=== PATIENT | female | born 1960 | race Caucasian/White ===

== ENCOUNTER 2024-01-04 14:23 | Outpatient (AMB) | payer MEDICARE, SELFPAY ==
--- NOTE | 2024-01-04 14:35 | MHC.OFFVIS ---
Vital Signs 01/04/24 14:47 Height 4 ft 11 in Weight 203 lb 7.787 oz BMI 41.1 BP 124/60 Blood Pressure Location Rt brachial Position Sitting Pulse 86 Pulse Source Pulse Oximeter Pulse Oximetry (%) 95 Oxygen Delivery Method Room Air Intake Visit Reasons: Myalgia/CM Intake Note: Patient presents for Myalgia. Body aches all over Allergies No Known Allergies Allergy (Verified 01/04/24 14:40) Medication List - Last Reconciled 01/04/24 by Lisseth Lagunas MD cetirizine (All Day Allergy (cetirizine)) 10 mg PO DAILY PRN cholecalciferol (vitamin D3) 50 mcg PO DAILY hydroxyzine pamoate 25 mg PO BID PRN insulin aspart U-100 (Novolog FlexPen U-100 Insulin aspart) subcut lactulose (Constulose) 30 mL PO TID lisinopril 10 mg PO DAILY magnesium oxide 500 mg PO DAILY rifaximin (Xifaxan) 550 mg PO BID venlafaxine ER mg PO HPI Comments Details: This is a 63-year-old female who presents for evaluation of diffuse pain. Patient states that for the last 3-4 months she has been having diffuse body aches, generally worse at night, associated with night sweats, she never took her temperature, yes pain in her neck, shoulders, thighs, hips, lower back. She stated that she fell about a year ago and she does not believe she broke anything. After well she started having left shoulder pain. She was found to have multiple rotator cuff tears. She is s/p right tennis elbow repair in the past. She states that her hands intermittently swell up. Has any history suggestive of Raynaud's. Denies any history of DVT/PE. Denies weight loss. She is unaware of any family history of an autoimmune rheumatic disease. Denies psoriasis. She stated that she was diagnosed with SERGIO in the past and could not tolerate her CPAP machine. [facility] Medical History Tubular adenoma of colon Obesity SERGIO (obstructive sleep apnea) Depression with anxiety Vitamin D deficiency Anemia Open-angle glaucoma Mild cognitive impairment Splenomegaly Thrombocytopenia Liver cirrhosis Esophageal varices Hypertension History of tennis elbow Surgical History History of appendectomy History of tonsillectomy Social History Household Members: Spouse Housing: House Alcohol intake: former Patient Tobacco Use Status: Former Tobacco user Years Smoked: 9 Current occupational status: previously employed Current occupation: protective services officer Female Reproductive History Menstrual Total pregnancies: 1 Full term: 1 Review of Systems Const Reports fatigue, Reports lethargy, Reports weakness and Reports weight gain Eyes Reports eye pain ENT Reports dry mouth Musc Reports myalgias, Reports arthralgias, Reports muscle weakness and Reports numbness Skin/Breast Reports alopecia, Reports photosensitivity and Reports unusual bruising Neuro Reports numbness and Reports weakness Psych Reports abnormal sleep pattern and Reports anxiety Endo Reports fatigue Physical Exam Vital Signs: Last Vital Signs Pulse 86 01/04/24 14:47 BP 124/60 01/04/24 14:47 Pulse Ox 95 01/04/24 14:47 Oxygen Delivery Method Room Air 01/04/24 14:47 BMI result Body Mass Index 41.1 Const General: cooperative, healthy appearing and comfortable Nutritional Appearance: obese morbidly obese Orientation/consciousness: patient oriented x3 Limitations: no limitations HEENT Head: Yes normocephalic and Yes atraumatic Mouth: moist mucous membranes Resp Effort & Inspection: normal respiratory effort and able to speak in complete sentences Auscultation: clear to auscultation bilaterally Cardio Rate: regular rate Rhythm: regular rhythm Skin Other: Numerous spider angiomas Neuro General: patient oriented x3 Extrem Other: No active synovitis Bilateral finger clubbing Normal nailfold capillaroscopy Normal range of motion of hands, wrists, elbows and shoulders without pain Few tender muscles in the shoulders Proximal muscle strength 5/5 all 4 extremities Results Reviewed Results Reviewed: Labs 09/2023 RF negative ESR normal Uric acid normal JOSE ANTONIO 1-160 nucleolar Lyme screen negative Assessment & Plan Assessment & Plan (1) Polyarthralgia: Code(s): M25.50 - Pain in unspecified joint Category: Medical Plan: This is a 63-year-old female who presents for evaluation of diffuse pain. Also found to have a positive JOSE ANTONIO 1-160 nucleolar pattern. There is definitely an element of fibromyalgia as well as degenerative arthritis. I will order comprehensive serology to screen for underlying autoimmune rheumatic disease. Follow-up after blood work is completed Plan I spent 47 minutes reviewing patient's chart, evaluating patient, ordering diagnostic workup, counseling patient and documenting in the chart Orders: Orders Complete Blood Count Auto Diff Today M25.50 - Pain in unspecified joint C Reactive Protein Today M25.50 - Pain in unspecified joint Erythrocyte Sedimentation Rate Today M25.50 - Pain in unspecified joint Hepatitis A,B,C Profile Today Z11.59 - Encounter for screening for other viral diseases T Spot TB Today Z11.7 - Encounter for testing for latent tuberculosis infection Immunofixation Pnl, Serum Today M25.50 - Pain in unspecified joint Protein Electrophoresis, Serum Today M25.50 - Pain in unspecified joint Cyclic Citrullinated Peptide Today M25.50 - Pain in unspecified joint JOSE ANTONIO Reflex Titer and Pattern Today M32.9 - Systemic lupus erythematosus, unspecified Complement C3 Today M32.9 - Systemic lupus erythematosus, unspecified Protein Creatinine Ratio, Ur Today M32.9 - Systemic lupus erythematosus, unspecified Sjogren's Antibodies Today M32.9 - Systemic lupus erythematosus, unspecified UA w Microscopic Today M32.9 - Systemic lupus erythematosus, unspecified Creatine Kinase Total Today G72.9 - Myopathy, unspecified Lactate Dehydrogenase Today G72.9 - Myopathy, unspecified Gamma Glutamyl Transpeptidase Today G72.9 - Myopathy, unspecified Mitochondrial Antibody Today K74.60 - Unspecified cirrhosis of liver Smooth Muscle Antibody Today K74.60 - Unspecified cirrhosis of liver Comprehensive Met. Panel Today M25.50 - Pain in unspecified joint Anti Extractable Nuclear Ag Today M32.9 - Systemic lupus erythematosus, unspecified Anti DNA DS Antibody Today M32.9 - Systemic lupus erythematosus, unspecified Complement C4 Today M32.9 - Systemic lupus erythematosus, unspecified DNA Double Stranded-Crithidia Today M32.9 - Systemic lupus erythematosus, unspecified Aldolase Today G72.9 - Myopathy, unspecified Liver Kidney Microsomal Ab Today K74.60 - Unspecified cirrhosis of liver Scleroderma 12 Panel Today M34.9 - Systemic sclerosis, unspecified Coding Level of Care Code New Pt Level 4 (43261) Diagnoses Polyarthralgia M25.50
[2024-01-04 14:47] VITALS: BP 124/60; PULSE 86; O2SAT 95; BMI 41.1
== END 2024-01-04 15:47 | disposition home or self-care (01) ==
PROVIDERS: PCP Nurse Practitioner Primary Care; Visit Provider Student in an Organized Health Care Education/Training Program
DX: M25.50 Pain in unspecified joint (principal)
CPT/HCPCS: 99204

== ENCOUNTER 2024-01-04 14:23 | Outpatient (REF) | payer MEDICARE, SELFPAY ==
[2024-01-04 16:23] LABS: MANUAL DIFF FLAG NO
[2024-01-04 16:56] LABS: Appearance Urine Clear; Color Urine Dark Yellow; Glucose Urine UA Negative (Negative); Leukocyte Esterase Urine Small (1+) (Negative); Nitrite Urine Negative (Negative); Specific Gravity - Urine >= 1.030 (1.005-1.025); UMIC TRIGGER UA YES; Urine Blood Negative (Negative); Urine Ketones Trace mg/dL (Negative); Urine Protein 30 (1+) mg/dL (Neg-Trace)
[2024-01-04 16:57] LABS: Hematocrit 39.9 % (37.0-47.0); Hemoglobin 13.4 g/dl (12.0-16.0); Imm Gran Abs Auto 0.01 X10*3/uL (0.00-0.03); Imm Gran Pct Auto 0.3 % (0.0-0.4); Lymphocytes Absolute Auto 1.1 X10*3/uL (1.2-4.9); Lymphocytes Percent Auto 30.6 % (20-40); Mean Corpuscular HGB Conc 33.6 g/dl (31.0-35.0); Mean Corpuscular Hemoglobin 29.5 pg (27.0-33.0); Mean Corpuscular Volume 87.9 fL (80.0-98.0); Mean Platelet Volume 10.4 fL (9.4-12.3); Monocytes Absolute Auto 0.2 X10*3/uL (0.1-1.2); Monocytes Percent Auto 4.8 % (2-11); Neutrophils Absolute Auto 2.3 x10*3/uL (2.0-8.3); Neutrophils Percent Auto 64.3 % (45-73); Red Blood Count 4.54 X10*6/uL (4.20-5.50); Red Cell Distribution Width 13.7 % (11.0-16.0); White Blood Count 3.5 X10*3/uL (4.8-10.8)
[2024-01-04 17:00] LABS: Bacteria Urine 1+ (None Seen); Hyaline Casts Urine 0-2 /LPF (0-2); RBC Urine 0-2 /HPF (0-2)
[2024-01-04 17:04] LABS: Platelet Count 76 X10*3/uL (160-400)
[2024-01-04 17:51] LABS: Creatinine Urine 182.95 mg/dL; Protein/Creatinine Ratio, Ur 0.11 (<0.2); Total Protein Urine Random 20 mg/dL (<12)
[2024-01-04 17:51] LABS: Alanine Aminotransferase 15 U/L (0-31); Albumin Level 3.9 g/dL (3.5-5.0); Alkaline Phosphatase 105 U/L (39-117); Anion Gap 14 (12-20); Aspartate Amino Transferase 24 U/L (5-31); Bilirubin Total 0.6 mg/dL (0.0-1.0); Blood Urea Nitrogen 14 mg/dL (9-16); Calcium 9.3 mg/dL (8.4-10.2); Carbon Dioxide 22 mmol/L (22-29); Chloride 110 mmol/L (96-108); Estimated Glomerular Filt Rate > 60; Gamma Glutamyl Transpeptidase 38 U/L (7-33); Glucose Random 106 mg/dL (60-115); Lactate Dehydrogenase 212 U/L (122-220); Potassium 4.1 mmol/L (3.3-5.1); Sodium 142 mmol/L (135-145); Total Protein 6.6 g/dL (6.5-8.0)
[2024-01-04 18:16] LABS: Erythrocyte Sedimentation Rate 10 MM/HR (0-20)
[2024-01-05 04:26] LABS: HBS Num1 19.58 mIU/mL (0-7.99); HBc Num1 0.13 S/CO (0.00-0.79); HBsAGNum1 0.32 S/CO (0.00-0.99); Hepatitis A Antibody IgM 0.22 Index (0-0.79); Hepatitis B Core Antibody Nonreactive (Nonreactive); Hepatitis B Surface Antigen Negative (Negative); ~HepC Num1 0.06 S/CO (0.00-0.79); ~Hepatitis A Antibody IgM Nonreactive (Nonreactive); ~Hepatitis B Surface Antibody REACTIVE (Nonreactive); ~Hepatitis C Antibody Nonreactive (Nonreactive)
[2024-01-06 09:14] LABS: Mitochondrial Antibodies NEGATIVE (NEGATIVE)
[2024-01-06 10:59] LABS: Complement C3 142 mg/dL (83-193)
[2024-01-06 20:08] LABS: Anti DNA DS Antibody <1 IU/mL; Antibody to SS-A Antigen <1.0 NEG AI (<1.0 NEG); Antibody to SS-B Antigen <1.0 NEG AI (<1.0 NEG); SM/Ribonucleoprotein Ab <1.0 NEG AI (<1.0 NEG); Smith Protein <1.0 NEG AI (<1.0 NEG)
[2024-01-06 20:43] LABS: Prot Elec - Albumin 3.9 g/dL (3.8-4.8); Prot Elec - Alpha1 0.3 g/dL (0.2-0.3); Prot Elec - Alpha2 0.7 g/dL (0.5-0.9); Prot Elec - Beta 1 0.4 g/dL (0.4-0.6); Prot Elec - Beta 2 0.3 g/dL (0.2-0.5); Prot Elec - Gamma 0.9 g/dL (0.8-1.7); Prot Elec - Total Protein 6.4 g/dL (6.1-8.1)
[2024-01-07 06:09] LABS: TS Negative Control Passed; TS Panel A 0; TS Panel B 0; TS Positive Control Passed; TSpotTB Negative (Negative)
[2024-01-07 08:48] LABS: Aldolase 4.6 U/L (<=8.1)
[2024-01-07 09:28] LABS: IgA 125 mg/dL (70-320); IgG 941 mg/dL (600-1540); IgM 138 mg/dL (50-300)
[2024-01-10 03:07] LABS: Liver Kidney Microsomal Ab <=20.0 U (<=20.0)
[2024-01-10 05:53] LABS: Smooth Muscle Antibody <20 U (<20)
[2024-01-12 13:23] LABS: Cyclic Citrullinated Peptide <16 Units (<20)
[2024-01-12 15:23] LABS: DNAds, Crithidia Antibody Negative (Negative)
[2024-01-13 06:19] LABS: Anti Nuclear Antibody Screen NEGATIVE (NEGATIVE)
[2024-01-14 18:28] LABS: Centromere Protein A Ab <11 SI (<11); Centromere Protein B Ab <11 SI (<11); Fibrillarin Ab <11 SI (<11); PM SCL 100 Ab <11 SI (<11); PM SCL 75 Ab <11 SI (<11); RNA Polymerase III RP11 Ab <11 SI (<11); RNA Polymerase III RP155 Ab <11 SI (<11); SCL-70 Extractable Nuclear Ab <11 SI (<11); Th-To Ab <11 SI (<11); U1 SNRNP RNP 70KD <11 SI (<11); U1 SNRNP RNP A 13 SI (<11); U1 SNRNP RNP C <11 SI (<11)
== END 2024-01-04 14:24 | disposition home or self-care (01) ==
LOC: HO.LAB 14:23
PROVIDERS: PCP Nurse Practitioner Primary Care; Visit Provider Student in an Organized Health Care Education/Training Program
DX: M25.50 Pain in unspecified joint (principal); M32.9 Systemic lupus erythematosus, unspecified; G72.9 Myopathy, unspecified; K74.60 Unspecified cirrhosis of liver; M34.9 Systemic sclerosis, unspecified; Z11.7 Encounter for testing for latent tuberculosis infection; Z11.59 Encounter for screening for other viral diseases; Z72.89 Other problems related to lifestyle
CPT/HCPCS: 36415; 80053; 81001; 82085; 82550; 82570; 82784; 82977; 83615; 84156; 84165; 84182; 85025; 85652; 86015; 86038; 86140; 86160; 86200; 86225; 86235; 86255; 86334; 86376; 86381; 86481; 86704; 86706; 86709; 86803; 87340; 99202

== ENCOUNTER 2024-04-17 10:11 | Outpatient (AMB) | payer MEDICARE, SELFPAY ==
--- NOTE | 2024-04-17 10:26 | A.OFFVIS_ITS ---
Vital Signs 04/17/24 10:34 Height 4 ft 11 in Weight 195 lb 15.855 oz BMI 39.6 BP 115/60 Blood Pressure Location Lt brachial Position Sitting Pulse 74 Pulse Source Pulse Oximeter Pulse Oximetry (%) 97 Oxygen Delivery Method Room Air Intake Visit Reasons: -JOSE ANTONIO +VE/CM Intake Note: Patient presents for -JOSE ANTONIO +VE. Allergies No Known Allergies Allergy (Verified 04/17/24 10:29) Medication List - Last Reconciled 04/17/24 by Lisseth Lagunas MD cetirizine (All Day Allergy (cetirizine)) 10 mg PO DAILY PRN cholecalciferol (vitamin D3) 50 mcg PO DAILY enoxaparin 150 mg subcut DAILY hydroxyzine pamoate 25 mg PO BID PRN insulin aspart U-100 (Novolog FlexPen U-100 Insulin aspart) subcut lactulose (Constulose) 30 mL PO TID lisinopril 10 mg PO DAILY magnesium oxide 500 mg PO DAILY rifaximin (Xifaxan) 550 mg PO BID venlafaxine ER mg PO HPI Comments Details: Patient returns for follow-up after completion of her diagnostic workup, she continues to feel about the same. Initial history: This is a 63-year-old female who presents for evaluation of diffuse pain. Patient states that for the last 3-4 months she has been having diffuse body aches, generally worse at night, associated with night sweats, she never took her temperature, yes pain in her neck, shoulders, thighs, hips, lower back. She stated that she fell about a year ago and she does not believe she broke anything. After well she started having left shoulder pain. She was found to have multiple rotator cuff tears. She is s/p right tennis elbow repair in the past. She states that her hands intermittently swell up. Has any history suggestive of Raynaud's. Denies any history of DVT/PE. Denies weight loss. She is unaware of any family history of an autoimmune rheumatic disease. Denies psoriasis. She stated that she was diagnosed with SERGIO in the past and could not tolerate her CPAP machine. [facility] Medical History Tubular adenoma of colon Obesity SERGIO (obstructive sleep apnea) Depression with anxiety Vitamin D deficiency Anemia Open-angle glaucoma Mild cognitive impairment Splenomegaly Thrombocytopenia Liver cirrhosis Esophageal varices Hypertension History of tennis elbow Surgical History History of appendectomy History of tonsillectomy Social History Household Members: Spouse Housing: House Alcohol intake: former Patient Tobacco Use Status: Former Tobacco user Years Smoked: 9 Current occupational status: previously employed Current occupation: highway patrol officer Review of Systems Const Reports fatigue, Reports lethargy and Reports weakness ENT Details: Lower lip lesion Musc Reports myalgias, Reports arthralgias, Reports muscle weakness and Reports numbness Neuro Reports numbness and Reports weakness Psych Reports abnormal sleep pattern and Reports anxiety Endo Reports fatigue Physical Exam Vital Signs: Last Vital Signs Pulse 74 04/17/24 10:34 BP 115/60 04/17/24 10:34 Pulse Ox 97 04/17/24 10:34 Oxygen Delivery Method Room Air 04/17/24 10:34 BMI result Body Mass Index 39.6 Const General: cooperative, healthy appearing and comfortable Nutritional Appearance: obese morbidly obese Orientation/consciousness: patient oriented x3 Limitations: no limitations HEENT Other: A crusted over lesion on the angle of the r lower lip at the right side Head: Yes normocephalic and Yes atraumatic Mouth: moist mucous membranes Resp Effort & Inspection: normal respiratory effort and able to speak in complete sentences Cardio Rate: regular rate Rhythm: regular rhythm Skin Other: Numerous spider angiomas Neuro General: patient oriented x3 Extrem Other: No active synovitis Normal nailfold capillaroscopy Normal range of motion of hands, wrists, elbows and shoulders without pain Few tender muscles in the shoulders Proximal muscle strength 5/5 all 4 extremities Results Reviewed Results Reviewed: Laboratory Tests 01/04/24 16:19 U1 snRNA A Antibody 13 H Assessment & Plan Assessment & Plan (1) Polyarthralgia: Code(s): M25.50 - Pain in unspecified joint Category: Medical Plan: This is a 63-year-old female who presents for evaluation of diffuse pain. In the context of positive JOSE ANTONIO 1-160. Repeat JOSE ANTONIO is negative as well as comprehensive serologies except for borderline positive U1 SNR antibody which is of unclear significance. Picture consistent with fibromyalgia Discussed management of fibromyalgia with patient. Is a noninflammatory, non- autoimmune central afferent processing disorder leading to a diffuse pain syndrome. I suggested that patient try to address her underlying psychiatric issues, anxiety/depr ession. I suggested evaluation by a therapist . Patient was diagnosed with SERGIO about 15 years ago and is not treated for it. Advised patient to get a repeat sleep study. Try to follow sleep hygiene practices. Patient would benefit from increased physical activity, either through formal physical therapy or by joining a gym. Advised patient that she should start activity slowly and increase as tolerated. Consider low-impact exercises such as walking, swimming, aqua therapy stretching, yoga. Follow-up with PCP Plan I spent 17 minutes reviewing patient's chart, evaluating patient, counseling patient and documenting in the chart Coding Level of Care Code Est Pt Level 3 (90326) Diagnoses Polyarthralgia M25.50
[2024-04-17 10:34] VITALS: BP 115/60; PULSE 74; O2SAT 97; BMI 39.6
== END 2024-04-17 11:06 | disposition home or self-care (01) ==
PROVIDERS: PCP Nurse Practitioner Primary Care; Visit Provider Student in an Organized Health Care Education/Training Program
DX: M25.50 Pain in unspecified joint (principal)
CPT/HCPCS: 99213

== ENCOUNTER → 2024-04-17 10:11 | Outpatient (BNVA) | payer MEDICARE, SELFPAY | PROVIDERS: PCP Nurse Practitioner Primary Care; Visit Provider Student in an Organized Health Care Education/Training Program | DX: M25.50 Pain in unspecified joint (principal); M79.7 Fibromyalgia | CPT/HCPCS: 99212 ==